=== PATIENT | male | born 1995 | race Caucasian/White ===

== ENCOUNTER 2020-12-29 15:35 | Emergency (ER) | payer SELFPAY ==
--- NOTE | ~2020-12-29 | XR_ITS ---
EXAMINATION: XR abdomen/kub 1V DATE: 12/29/2020 20:11 INDICATION: Constipation. Rectal bleeding. TECHNIQUE: A supine view of the abdomen on 2 radiographs was obtained. COMPARISON: None. FINDINGS: There are no dilated loops of bowel. There is a large volume of stool in the colon. IMPRESSION: 1. Large volume of stool in the colon. Reviewed, dictated and finalized at location [facility]
[2020-12-29 15:37] VITALS: BP 163/110; PULSE 126; RESP 16; TEMP 36.5; O2SAT 99
[2020-12-29 18:15] VITALS: BP 145/99; PULSE 110; RESP 22; O2SAT 99
--- NOTE | 2020-12-29 19:46 | PC.NURSE ---
Pt in the bathroom at this time
[2020-12-29] MEDS: LORazepam (*CRX) 1 MG TABLET PO (20:17)
--- NOTE | 2020-12-29 20:17 | PC.NURSE ---
Pt states he was not able to have a BM while we has in the bathroom.
--- NOTE | 2020-12-29 20:28 | ED.GENADULT ---
HPI - General Adult General Chief complaint: Abdominal Pain Stated complaint: constipation Time Seen by Provider: 12/29/20 18:25 History of Present Illness HPI narrative: Patient is a 25-year-old male who presents the ER with reports of constipation. Reports she has not had a normal stool in 1 month. He has passed a few small nuggets. He has not tried to manually disimpact himself. He has tried laxatives intermittently without success. No fevers or chills or sweats. No history of bowel obstruction. Related Data Allergies Allergy/AdvReac Type Severity Reaction Status Date / Time No Known Allergies Allergy Verified 12/29/20 20:17 Review of Systems Constitutional: Constitutional: Denies chills, Denies fever(s) and Denies weakness Respiratory: Respiratory: Denies cough and Denies dyspnea Gastrointestinal: Gastrointestinal: Denies abdominal pain, Reports constipation, Denies nausea and Denies vomiting PMFSH Past Medical History Medical History (Updated 12/29/20 @ 20:34 by Michael Godfrey MD) Healthy adult male Surgical History Surgical History (Updated 12/29/20 @ 20:29 by Michael Godfrey MD) History of appendectomy Social History Social History (Updated 12/29/20 @ 20:29 by Michael Godfrey MD) Smoking status: Never smoker Exam Narrative: Exam Narrative: GENERAL: Well-appearing, well-nourished, and in no acute distress. HEAD: Normocephalic, atraumatic. ABDOMEN: Soft, nontender, nondistended. Rectal: Normal external genitalia without evidence of hemorrhoid. JORGE LUIS with firm nugget like stool that was physically removed. EXTREMITIES: Normal range of motion. No edema. NEURO: Alert and oriented x3. PSYCH: Normal mood and affect. Course Course Emergency Course: Discussed x-ray images with patient. He does not thinking tolerate another rectal exam. Opts not to be manually disimpacted or to have a colonoscopy. He will go home with a bowel prep. Vital Signs Vital signs: Vital Signs Temperature 97.7 F 12/29/20 15:37 Pulse Rate 126 H 12/29/20 15:37 Respiratory Rate 16 12/29/20 15:37 Blood Pressure 163/110 H 12/29/20 15:37 Pulse Oximetry 99 12/29/20 15:37 Temperature 97.7 F 12/29/20 15:37 Pulse Rate 110 H 12/29/20 18:15 Respiratory Rate 22 H 12/29/20 18:15 Blood Pressure 145/99 H 12/29/20 18:15 Pulse Oximetry 99 12/29/20 18:15 Medical Decision Making Vital Signs Vital Signs: Vital Signs Temperature 97.7 F 12/29/20 15:37 Pulse Rate 126 H 12/29/20 15:37 Respiratory Rate 16 12/29/20 15:37 Blood Pressure 163/110 H 12/29/20 15:37 Pulse Oximetry 99 12/29/20 15:37 Temperature 97.7 F 12/29/20 15:37 Pulse Rate 110 H 12/29/20 18:15 Respiratory Rate 22 H 12/29/20 18:15 Blood Pressure 145/99 H 12/29/20 18:15 Pulse Oximetry 99 12/29/20 18:15 Imaging Data Radiologist's impression: ITS Impressions Abdomen X-Ray 12/29/20 20:16 IMPRESSION: 1. Large volume of stool in the colon. Discharge Plan Discharge Clinical Impression: Constipation Patient Disposition: Home, Self-Care Condition: Stable Instructions: Constipation (ED) Additional Instructions: Return the ER if you cannot have a bowel movement, you have uncontrolled nausea and vomiting, you have chest pain or shortness of breath, you have additional concerns. Prescriptions: New peg-electrolyte soln [Nulytely [place]] 420 gram recon soln 240 ml PO Q10M Qty: 4000 RF: 0 Follow-up/Referrals: PHYSICIAN,CLINICAL PARTNER [Primary Care Provider] - Mickie Bradley DO [Physician] - 1 Week
[2020-12-29 20:50] VITALS: BP 149/98; PULSE 116; RESP 20; O2SAT 100
== END 2020-12-29 20:53 | disposition home or self-care (01) ==
PROVIDERS: Emergency Provider Emergency Medicine
DX: K59.00 Constipation, unspecified (principal)
CPT/HCPCS: 74018; 99283; A9270

== ENCOUNTER 2022-11-18 17:13 | Emergency (ER) | payer MEDICAID, SELFPAY ==
[2022-11-18 17:35] VITALS: BP 146/84; PULSE 116; RESP 20; TEMP 36.6; O2SAT 99
--- NOTE | 2022-11-18 17:44 | ED.ANXIETY ---
HPI - Anxiety General Chief Complaint: Anxiety Stated Complaint: anxiety and restless legs bipolar disorder Time Seen by Provider: 11/18/22 17:44 Source: patient Mode of arrival: ambulatory Limitations: no limitations History of Present Illness HPI narrative: 27-year-old male with a history of opiate/cocaine abuse quit 40 days ago, recently diagnosed with bipolar and started on Geodon presents to the ER with -- anxiety -- racing thoughts with inability to sleep -- agitated and restless according to his mother no hallucinations or delusions noted. patient had received Geodon but ran out of that medication a while ago complaint: anxiety and heart racing Onset (ago): day(s) Severity: moderate Quality: constant History of similar episodes: Yes Provoking factors: none known Relieving factors: nothing Exacerbating factors: nothing Related Data Allergies Allergy/AdvReac Type Severity Reaction Status Date / Time No Known Allergies Allergy Verified 11/18/22 17:39 Review of Systems Review of Systems: All systems reviewed & are unremarkable except as noted in HPI and below Constitutional: Constitutional: Reports as per HPI and Reports no additional constitutional complaints Eyes: Eyes: Reports as per HPI and Reports no additional eye complaints ENT: Reports system reviewed and no additional complaints, except as documented and Reports as per HPI Cardiovascular: Cardiovascular: Reports as per HPI and Reports no additional cardiovascular complaints Respiratory: Respiratory: Reports as per HPI and Reports no additional respiratory complaints Gastrointestinal: Gastrointestinal: Reports as per HPI and Reports no additional gastrointestinal complaints Genitourinary: Genitourinary: Reports no additional male genitourinary complaints and Reports as per HPI Musculoskeletal: Musculoskeletal: Reports no additional musculoskeletal complaints and Reports as per HPI Integumentary/Breasts: Skin/Breast: Reports system reviewed and no additional complaints, except as docu and Reports as per HPI Neurologic: Reports system reviewed and no additional complaints, except as documented and Reports as per HPI Psychiatric: Psychiatric: Reports no additional psychiatric complaints, Reports as per HPI and Reports anxiety Comments: Denies suicidal or homicidal ideation Endocrine: Endocrine: Reports no additional endocrine complaints and Reports as per HPI Hematologic/Lymphatic: Hematologic/Lymphatic: Reports no additional hematologic/lymphatic complaints and Reports as per HPI Allergic/Immunologic: Allergic/Immunologic: Reports no additional allergic/immunologic complaints and Reports as per HPI PMFSH Past Medical History Medical History (Updated 11/18/22 @ 18:08 by Shailesh Dockery MD) Healthy adult male Polysubstance abuse Surgical History Surgical History History of appendectomy Social History Social History Smoking status: Never smoker Exam Const: General: no acute distress Nutritional Appearance: well nourished Orientation/consciousness: patient oriented x3 Limitations: no limitations HENMT: Head: normal to inspection Ears: external ears normal Face/Nose/Sinus: Normal external nose present Face and sinus: normal facial exam Mouth: Yes Normal oral and palatal mucosa present Throat: posterior oropharynx normal Eyes: Conjunctivae: conjunctivae normal Pupils: Equal, round and reactive pupils present EOM: EOMs intact bilaterally Direct Ophthalmoscopy: no photophobia Neck: Neck: normal visual inspection and no meningeal signs Chest: Chest palpation & inspection: normal inspection of the chest Resp: Effort & Inspection: normal respiratory effort Auscultation: clear to auscultation bilaterally Cardio: Rate: regular rate Rhythm: regular rhythm GI: GI Palp: Yes Soft to palpation Auscultation: norm
[2022-11-18 18:19] VITALS: BP 134/89; PULSE 103; RESP 16; TEMP 36.3; O2SAT 97
== END 2022-11-18 18:20 | disposition home or self-care (01) ==
PROVIDERS: Emergency Provider Internal Medicine Critical Care Medicine; PCP Family Medicine
DX: F31.9 Bipolar disorder, unspecified (principal); F41.9 Anxiety disorder, unspecified
CPT/HCPCS: 99283